=== PATIENT | female | born 1980 | race African-American/Black ===

== ENCOUNTER 2019-03-09 08:55 | Emergency (ER) | payer BC, OTHER ==
[~2019-03-09] VITALS: Ht 162.6 cm; Wt 127.9 kg
[~2019-03-09 08:55] MED LIST: GLYXAMBI 25 MG1 EACH PO; GUAIFEN-CODEINE10 ML PO; HYDROCHLOROTHIA25 M2 PO; LIPITOR10 MG PO; METFORMIN HCL500 MG PO; NEURONTIN 300300 M1 PO; PRINIVIL20 MG PO; TRULICITY1.5 MG/0.5 SUBQ
[2019-03-09] MEDS ORDERED: TESSALON PERLE100 MG PO (11:59)
[2019-03-09] MEDS ORDERED: PROMETHAZINE-P118 M1 PO (11:59)
[2019-03-09 14:25] VITALS: BP 120/69
== END 2019-03-09 12:10 | disposition home or self-care (01) ==
LOC: ER 08:55
DX: J06.9 Acute upper respiratory infection, unspecified (principal); I10 Essential (primary) hypertension; E11.9 Type 2 diabetes mellitus without complications; Z88.5 Allergy status to narcotic agent

== ENCOUNTER 2019-03-25 19:07 | Emergency (ER) | payer BC, OTHER ==
[~2019-03-25] VITALS: Ht 162.6 cm; Wt 123.8 kg
[~2019-03-25 19:07] MED LIST changes: +PROMETHAZINE-P118 M1 PO; +TESSALON PERLE100 MG PO
[2019-03-25] MEDS ORDERED: NORCO 5-325 TA1 EACH PO (20:30)
[2019-03-25 20:49] VITALS: BP 129/74
== END 2019-03-25 20:40 | disposition home or self-care (01) ==
LOC: ER 19:07
DX: G89.29 Other chronic pain (principal); M25.562 Pain in left knee; I10 Essential (primary) hypertension; E11.9 Type 2 diabetes mellitus without complications; E66.9 Obesity, unspecified; Z68.42 Body mass index [BMI] 45.0-49.9, adult; Z79.899 Other long term (current) drug therapy; Z88.5 Allergy status to narcotic agent

== ENCOUNTER 2019-05-04 18:42 | Emergency (ER) | payer BC, OTHER ==
[~2019-05-04] VITALS: Ht 162.6 cm; Wt 127.9 kg
[2019-05-04 18:42] VITALS: BP 132/93
[~2019-05-04 18:42] MED LIST changes: +NORCO 5-325 TA1 EACH PO
[2019-05-04] MEDS ORDERED: IBUPROFEN 800800 M1 PO (19:20)
== END 2019-05-04 19:28 | disposition home or self-care (01) ==
LOC: ER 18:42
DX: S90.111A Contusion of right great toe without damage to nail, initial encounter (principal); I10 Essential (primary) hypertension; E11.9 Type 2 diabetes mellitus without complications; E66.9 Obesity, unspecified; Z68.42 Body mass index [BMI] 45.0-49.9, adult; Z88.5 Allergy status to narcotic agent; W22.8XXA Striking against or struck by other objects, initial encounter; Y92.89 Other specified places as the place of occurrence of the external cause; Y93.89 Activity, other specified; Y99.8 Other external cause status

== ENCOUNTER → 2019-07-14 | Outpatient (CLI) | payer BC, OTHER ==
[~2019-07-14] VITALS: Ht 264.2 cm; Wt 124.3 kg
[~2019-07-14] MED LIST changes: +BACLOFEN 10MG T10 MG PO; +FLEXERIL PO; +IBUPROFEN 800800 M1 PO; +LIPITOR 20 MG T20 M1 PO; -LIPITOR10 MG PO; +LISINOPRIL40 MG PO; +METOPROLOL SUCC50 MG PO; +NEURONTIN600 MG PO; -PRINIVIL20 MG PO
[2019-07-14 13:34] VITALS: BP 137/99
--- NOTE | 2019-07-14 13:45 | NUR ---
Pain Clinic Assessment: 1. History of Osteoarthritis: LEFT KNEE History of Rheumatoid Arthritis: NONE 2. Height: 5 ft. 44 in. 264.2 cm. Weight: 274.0 lb. oz. 124.286 kg. Patient's BMI: 17.8 3. Vital Signs: BP: 137/99 Pulse: 97 Resp: 16 Temp: 02 Sat: 100 ECG Mon: 4. Pain Intensity: 7-8 5. Fall Risk: Dizziness: Y Needs help standing or walking: N Fallen in the last 3 months: N Fall risk comments: 6. Patient on Blood Thinner: None 7. History of Hypertension: Y 8. Opioid Therapy greater than 6 weeks: N Opiate Contract Signed: 9. Risk Assessment Tool Provided: 10. Functional Assessment Tool: 11. Recreational Drug Use: Never Drug Type: Tobacco Use: Never Smoker Tobacco Type: Amount or Packs/day: How Many Years: Alcohol Use: No Frequency: Quant:
--- NOTE | 2019-07-15 07:59 | HPC ---
[facility] [address] [place] [address] PAIN MANAGEMENT CONSULTATION Name: LEONARD CHASE Room #: REG SHARI Fraser.#: [id number] Admission: 07/14/19 Attend Phys: Kevon Red DO Discharge: Date of : 76 Report #: [id number] THIS REPORT FOR: //name// CC: Kevon Salinas Cande Brad MATHEW DATE OF SERVICE: 07/14/2019 CHIEF COMPLAINT: Neck pain, right upper extremity pain with paresthesias. HISTORY OF PRESENT ILLNESS: As you know, the patient is a very pleasant 38-year-old female with 1-month history of neck pain, right upper extremity pain with paresthesias. She indicates no injury or trauma that may have led to symptom occurrence. She states her pain became intense enough that she was seen in the Emergency Department and advised that the CT examination, which was performed to evaluate the patient's cervical region was suboptimal in nature. It was degraded significantly by body habitus. There was noted a possible increase in soft tissue density at the C6-C7 level, which might be a paramedian disk herniation, but it also might be beam hardening artifact, interestingly wrong side for the patient's pain. Rest of the imaging was degraded by body habitus and unusable. The patient sought evaluation after this ER visit with her PCP who started her on steroid medications. She has been on 2 rounds of steroids with improvement only with the Medrol Dosepak and those were only for the first 3 days. She has been provided a referral to our clinic to discuss options for treatment. The patient indicates today pain is continuous, describes the pain as aching and throbbing as well as numbness and tingling. Places current pain score 6/10, daily average of 5-6/10, worst pain has been 9/10. The patient states that sitting for any length of time or standing for any length of time tends to exacerbate symptoms; lying down tends to improve pain. She indicates pain begins on the right cervical region, radiates down the right arm in what appears to be a C6 dermatomal distribution. Also, is experiencing some paraspinal musculature tenderness that leads to a tension-type headache radiating over the right occipital area towards the supraorbital ridge. The patient denies injury or trauma that may have led to symptom occurrence. PAST MEDICAL HISTORY: 1. Diabetes mellitus type 2. 2. Severe morbid obesity. 3. Hypertension. 4. Dyslipidemia. 5. History of anxiety disorder. 6. History of osteoarthritis. [address] [address] PAIN MANAGEMENT CONSULTATION Name: LEONARD CHASE Room #: REG CLI Saurabh#: [id number] Admission: 07/14/19 Attend Phys: Kevon Red DO Discharge: Date of : 76 Report #: [id number] PAST SURGICAL HISTORY: 1. Tubal ligation. 2. Cholecystectomy. SOCIAL HISTORY: The patient denies tobacco, alcohol or IV illicit drug use. She is a phone triage nurse. She is working, not receiving workmen's compensation or is trying to obtain disability benefits. She is not in litigation in regards to pain. She is unaccompanied at today's visit. REVIEW OF SYSTEMS: Positive for wearing corrective eyewear, numbness and tingling sensations involving the right neck and right upper extremity, [id number] diabetes. All other review of systems negative per 12-point review of systems other than those listed in history of present illness. Pain impact score 33 of 70 indicating moderate interference of daily activities secondary to pain. ALLERGIES: CODEINE. CURRENT MEDICATIONS: Cyclobenzaprine 10 mg p.o. at bedtime, metoprolol 50 mg once a day, gabapentin 600 mg in the morning and 600-1200 mg at night, hydrocodone 5/325 one tab p.o. q.8 hours p.r.n. for pain, Glyxambi 25/5 mg once a day, atorvastatin 20 mg per day, Trulicity 1.5 mg/0.5 mg injected subcutaneous weekly, hydrochlorothiazide 25 mg per day, lisinopril 40 mg per day and metformin 500 mg b.i.d. IMAGING: CT cervical spine obtained 06/12/2019 shows straightening of the cervical lordosis. No acute fracture. No aggressive lytic or osteoblastic lesions. There is a mild disk space height loss at C7-T1. The spinal canal imaging is degraded by body habitus and thus un-useful. There is increased soft tissue density at the C6-C7 level, but it is undetermined whether or not this is a left paramedian disk herniation or if there is just beam hardening an artifact at the level. Thyroid appears normal. There is no other pathology noted on this degraded CT. PHYSICAL EXAMINATION: VITAL SIGNS: Blood pressure 137/99, pulse 97, respiratory rate 16 and unlabored. The patient is 100% on room air. Height 5 feet 4 inches tall, weight 274 pounds, BMI calculated at 47.0. GENERAL: Well-developed, well-nourished, well-hydrated, class 3, morbidly obese 38-year-old female appearing stated age. She is in moderate distress secondary to pain, placing current pain score at approximately 7-8/10. HEENT: Normocephalic, atraumatic. Pupils equal, round, reactive to light. Extraocular muscles are intact. Sclerae nonicteric without injection. NEUROLOGIC: Cranial nerves 2-12 grossly intact. Speech is fluent. The patient [facility] [address] [place] [address] PAIN MANAGEMENT CONSULTATION Name: LEONARD CHASE [facility] [id number] Admission: 07/14/19 Attend Phys: Kevon Red DO Discharge: Date of : 76 Report #: [id number] deemed a good historian. LUNGS: Clear, no wheeze, rhonchi or rales. CARDIOVASCULAR: Regular. No appreciable gallop, no rub. ABDOMEN: Soft, obese, normoactive bowel sounds. EXTREMITIES: Show no clubbing, no cyanosis, no edema. MUSCULOSKELETAL: Palpatory tenderness noted over the paraspinal musculature of the right cervical region, negative left. Deep palpation over the upper cervical region causes intensification of pain with radiation of symptoms over the top of the head in a typical occipital distribution. Cervical provocation testing is met with increasing pain on the right, negative left. Spurling's test appears to be positive right, certainly negative left. There are some tactile changes to light touching the distal C6 dermatome on the right. Normal findings, left. Loss of cervical lordotic curvature. ASSESSMENT: 1. Cervical radiculopathy. 2. Right neck pain. 3. Tension headache. 4. Cervicogenic headache. PLAN: 1. Based on today's physical exam and history the patient provides, the description the patient uses in regards to pain as well as the distribution of symptoms, it would appear the patient is suffering from cervical radiculopathy. We reviewed the degraded CT examination, which only shows findings on the left side at the C6-C7 level, which does not correlate with the patient's symptoms. It is questionable whether or not there is actually disk herniation at the C6-C7 level or is this a result of beam hardening artifact. The imaging is of little or no benefit and does not correlate to the patient's right-sided findings of possible radiculopathy. The patient will need to undergo MRI of the cervical spine for further evaluation given the degraded nature of the CT exam and the fact that there are no findings on this examination which will correlate with the patient's symptoms. Further workup needs to be addressed. We will defer to the primary team to complete this workup. 2. Would recommend discontinuation of gabapentin. The patient is noting side effects and does not appear to be taking this medication consistently. We will start the patient on Lyrica. We have given her samples of 75-mg tablets, she will take 1 in the morning, 1 at night for 3 nights, then increase to 2 in the morning, 2 at night or total of 150 mg BID. She will watch for any side effects such as sleepiness, disorientation, confusion, mental slowing with use of the medication. She was given samples of the 75-mg tablets to fill this titration. We are hopeful the patient will see benefit with this medication. 3. We have provided the patient with a different muscle relaxant. She states that the cyclobenzaprine causes too much somnolence, decreased mental acuity, disorientation for her to go about her daily activity. We have instead given a baclofen dose 10 mg 1 tab p.o. t.i.d. p.r.n. She will watch for side effects [address] [address] PAIN MANAGEMENT CONSULTATION Name: RENALEONARD Foster Room #: JERRY Wiley#: [id number] Admission: 07/14/19 Attend Phys: Kevon Red DO Discharge: Date of : 76 Report #: [id number] with the medication, but we are hopeful she will see good improvement. 4. We will begin the process of approval for a cervical epidural injection. We will need the MRI to review findings to confirm that there is pathology on the right that might be amenable to a cervical epidural injection. We will await the MRI results. Once the study has been completed, we will have the patient return to review the findings and possibly undergo a cervical injection. 5. We wish to thank Cande Salinas NP for the opportunity to see the patient in consultation. We will see her back once her MRI of the cervical spine has been completed, so that we can determine the pathology in the cervical region that may be the source of the patient's right upper extremity pain. If the MRI is complete and no pathology is noted, we would recommend then further evaluation with possible EMG of the right upper extremity. Again, we wish to thank you for the opportunity to see the patient in consultation. <ELECTRONICALLY SIGNED> By: Kevon Red DO 07/15/19 [id number] Kevon Red DO /nt
== END ==
LOC: PAIN 06:55
DX: M54.12 Radiculopathy, cervical region (principal); R51 Headache; E11.9 Type 2 diabetes mellitus without complications

== ENCOUNTER → 2019-07-29 | Outpatient (CLI) | payer BC, OTHER ==
[~2019-07-29] VITALS: Ht 162.6 cm; Wt 134.1 kg
--- NOTE | ~2019-07-29 | HPC ---
[facility] [address] [place] [address] PAIN MANAGEMENT CONSULTATION Name: LEONARD CHASE Room #: REG Carlene Fraser.#: [id number] Admission: 07/29/19 ������������������ Attend Phys: Kevon Red DO Discharge: ������������������ Date of : 76 Report #: [id number] THIS REPORT FOR: //name// CC: Kevon Salinas Cande Salinas TREE THINNER DATE OF SERVICE: 07/29/2019 CHIEF COMPLAINT: Neck pain, right upper extremity pain and paresthesias. HISTORY OF PRESENT ILLNESS: As you know, the patient is a 38-year-old female who reports an acute onset of neck pain, right upper extremity pain that presented with no inciting injury or trauma. She states her pain became so intense that she sought evaluation through the Emergency Department, underwent CT examination, which showed changes at the C6-C7 level, thought to be possibly a disk herniation, but there was a significant amount of beam hardening artifact. She was referred to our clinic where we saw the patient on 07/14/2019 given presumptive diagnosis of cervical radiculopathy and right neck pain. She was advised of different treatment options, she chose to undergo cervical epidural injection. She returns today 07/29/2019 having received precertification to undergo cervical epidural injection to address pain for which she gives a pain level of 3/10. ALLERGIES: CODEINE. CURRENT MEDICATIONS: Cyclobenzaprine, metoprolol, gabapentin, hydrocodone, Glyxambi, atorvastatin, Trulicity, hydrochlorothiazide, lisinopril, metformin. SOCIAL HISTORY: The patient denies tobacco, alcohol, IV or illicit drug use. 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 IMAGING: No new imaging available. PHYSICAL EXAMINATION: VITAL SIGNS: Blood pressure 149/85, pulse 110, respiratory rate 18 and unlabored. The patient is 99% on room air. Height 5 feet 4 inches tall, weight 295.6 pounds, BMI calculated 50.7. GENERAL: Well-developed, well-nourished, well-hydrated, class 3, morbidly obese 38-year-old female appearing stated age, pain is rated around 6/10. HEENT: Normocephalic, atraumatic. Pupils equal, round, reactive to light. EXTREMITIES: Show no clubbing, no cyanosis, and no edema. MUSCULOSKELETAL: Palpatory tenderness is again noted over the paraspinal musculature of the right cervical spine, negative left. Cervical provocation testing is met with increasing pain on the right, negative left. [address] [address] PAIN MANAGEMENT CONSULTATION Name: LEONARD CHASE Room #: REG SHARI Wiley#: [id number] Admission: 07/29/19 ������������������ Attend Phys: Kevon Red DO Discharge: ������������������ Date of : 76 Report #: [id number] test positive on the right. ASSESSMENT: 1. Cervical radiculopathy. 2. Right neck pain. 3. Cervicogenic headache. PLAN: 1. The patient returns today in followup visit having received precertification to undergo cervical epidural injection under fluoroscopic guidance to address cervical radicular symptoms. The patient has been advised the risks and benefits of the procedure. These risks include, but are not necessarily limited to bleeding, bruising, infection, worsening pain, no relief of pain, also risk of temporary or permanent muscle weakness, temporary or permanent nerve damage, possible paralysis, post-dural puncture headache and . The patient states understood and wished to proceed. 2. No medication changes made at today's visit. The patient will continue current medical therapy as previously prescribed. 3. The patient was given an excuse from work for today 07/29/2019 to recover from the procedure provided. DESCRIPTION OF PROCEDURE: C7-T1 cervical epidural steroid injection under fluoroscopic guidance. This is the first procedure of the first series that the patient is undergoing. After obtaining written consent, the patient was taken back to the fluoroscopy suite and placed in a prone position with separate pillows under chest and forehead to decrease cervical lordosis. The skin overlying the cervical area was prepped and draped in an aseptic fashion. The C7-T1 vertebral interspace was identified by AP fluoroscopy. The skin and subcutaneous tissue overlying the target site of injection was anesthetized using 3 mL of 1% lidocaine. A 20-guage, 4.5-inch Tuohy needle was advanced under fluoroscopic guidance toward the epidural space using a midline approach. The epidural space was identified using a loss of resistance to air technique. After negative aspiration for heme or cerebrospinal fluid, a total of 1 mL of Omnipaque was injected. A cervical epidurogram was confirmed using AP and oblique fluoroscopy. After negative aspiration for heme or cerebrospinal fluid, 5 mL of a solution containing 2 mL, 40 mg per mL, 80 mg total triamcinolone along with 3mL of lidocaine 1% was injected in increments. Contrast spread was noted from posterior epidural space. The needle was then retracted approximately [facility] and the needle track was flushed with 1 mL of 1% lidocaine. There were no apparent new sensory deficits in the upper extremities present following the procedure. A sterile bandage was placed over the injection site. [address] [address] PAIN MANAGEMENT CONSULTATION Name: LEONARD CHASE Room #: REG SHARI FraserDenny#: [id number] Admission: 07/29/19 ������������������ Attend Phys: Kevon Red DO Discharge: ������������������ Date of : 76 Report #: [id number] The heart rate, pulse oximetry and blood pressure were continuously monitored after the procedure. There were no apparent complications. The patient tolerated the procedure well and was carefully escorted in the recovery room in stable condition. After meeting discharge criteria, the patient was discharged home. ��������������������������������������������� ���������������������������������������� By: ��������������������������������������������� [id number] Kevon Red DO /nt
[2019-07-29 09:54] VITALS: BP 149/85
--- NOTE | 2019-07-29 10:01 | NUR ---
Pain Clinic Assessment: 1. History of Osteoarthritis: LEFT KNEE History of Rheumatoid Arthritis: NONE 2. Height: 5 ft. 4 in. 162.6 cm. Weight: 295.6 lb. oz. 134.084 kg. Patient's BMI: 50.7 3. Vital Signs: BP: 149/85 Pulse: 110 Resp: 18 Temp: 02 Sat: 99 ECG Mon: 4. Pain Intensity: 3 5. Fall Risk: Dizziness: N Needs help standing or walking: N Fallen in the last 3 months: N Fall risk comments: 6. Patient on Blood Thinner: None 7. History of Hypertension: Y 8. Opioid Therapy greater than 6 weeks: N Opiate Contract Signed: 9. Risk Assessment Tool Provided: 10. Functional Assessment Tool: 11. Recreational Drug Use: Never Drug Type: Tobacco Use: Never Smoker Tobacco Type: Amount or Packs/day: How Many Years: Alcohol Use: No Frequency: Quant:
== END | disposition home or self-care (01) ==
LOC: PAIN
DX: M54.12 Radiculopathy, cervical region (principal); M54.2 Cervicalgia; G44.89 Other headache syndrome; Z88.6 Allergy status to analgesic agent; Z79.891 Long term (current) use of opiate analgesic; Z98.890 Other specified postprocedural states; Z79.899 Other long term (current) drug therapy

== ENCOUNTER → 2019-08-19 | Outpatient (CLI) | payer BC, OTHER ==
[~2019-08-19] VITALS: Ht 162.6 cm; Wt 132.6 kg
[~2019-08-19] MED LIST changes: +LYRICA 75 MG CA75 MG PO
--- NOTE | ~2019-08-19 | HPC ---
[facility] [address] [place] [address] PAIN MANAGEMENT CONSULTATION Name: LEONARD CHASE Room #: REG RUIZCarlene Fraser.#: [id number] Admission: 08/19/19 Attend Phys: Kevon Red DO Discharge: Date of : 76 Report #: [id number] THIS REPORT FOR: //name// CC: Kevon MATHEW DATE OF SERVICE: 08/19/2019 CHIEF COMPLAINT: Neck pain, right upper extremity pain with paresthesias. HISTORY OF PRESENT ILLNESS: As you know, patient is a 38-year-old female who returns today in followup visit now reporting pain score 0/10. We have started the patient on Lyrica where she is taking 75 mg twice a day with improved pain. It is noted the patient discontinued baclofen and was started on cyclobenzaprine by her PCP. The patient has trialled the medication and feels it might be beneficial and she is going to continue that therapy. She returns today in followup visit requesting a refill of the Lyrica. She is denying side effects of sleepiness, disorientation, confusion, mental slowing with the use of the therapy. She is very pleased with response to medication, returning for refills. ALLERGIES: CODEINE. CURRENT MEDICATIONS: Pregabalin 75 mg twice a day, cyclobenzaprine 10 mg t.i.d. p.r.n., metoprolol ER 50 mg once a day, Glyxambi 25/5 mg once a day, atorvastatin 20 mg per day, Trulicity 1.5 mg subcutaneous weekly, hydrochlorothiazide 25 mg daily, lisinopril 40 mg per day, metformin 500 mg 2 tabs twice a day. SOCIAL HISTORY: The patient denies tobacco, alcohol, IV or illicit drug use. 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 She is working, not receiving workmen's compensation, unaccompanied today. IMAGING: No new imaging available. PHYSICAL EXAMINATION: VITAL SIGNS: Blood pressure 134/96, pulse 96, respiratory rate 16 and unlabored. The patient is 100% on room air. Height 5 feet 4 inches tall, weight 292.4 pounds, BMI calculated 50.2. GENERAL: Well-developed, well-nourished, well-hydrated, class 3, morbidly obese 38-year-old female appearing stated age, placing current pain score 0/10. HEENT: Normocephalic, atraumatic. Pupils equal, round, reactive to light. EXTREMITIES: Show no clubbing, no cyanosis, no edema. MUSCULOSKELETAL: Upper extremity strength appears symmetrical 5/5. Muscle bulk and tone equal and symmetrical in comparing left upper extremity to right. [address] [address] PAIN MANAGEMENT CONSULTATION Name: LEONARD CHASE Room #: REG SHARI Wiley#: [id number] Admission: 08/19/19 Attend Phys: Kevon Red DO Discharge: Date of : 76 Report #: [id number] Spurling's test remains positive on the right. Cervical provocation testing is met with slight increase in pain with rightward mobility mainly with lateral flexion and rotation. Extension and flexion of the cervical spine does not change overall symptoms. ASSESSMENT: 1. Cervical radiculopathy. 2. Cervicogenic headache. 3. Intractable pain. PLAN: 1. The patient has returned today in followup visit, very pleased with response to medication management. She feels the Lyrica 75 mg b.i.d. dose is working beneficially for pain control. She is denying side effects of sleepiness, disorientation, confusion, mental slowing with the use of the medication. We recommend she continue therapy. We are pleased to see she has done well with the medication and have provided her a prescription today of #60 tablets with 2 refills, 3 months' worth of medication. The patient was advised she can return to our clinic to refill the medication on a quarterly basis or she can follow up with her PCP for continuation of medication management if this is not a controlled substance. The patient was given a prescription today for #60 tablets, 2 refills, 3 months' worth of therapy. 2. The patient was given an excuse from work for this morning indicating that she will be returning to work by 10:00 of 08/19/2019. She was given the prescription for the report of visit today. 3. The patient has requested that a note to be provided to her employer for special seating a consideration. We recommend the patient follow up with her PCP in regards to this issue. We will defer to them for the request for this change in chairs. 4. If the patient has recurrence of pain, would recommend a slow titration of Lyrica to 100 mg b.i.d. starting with increase in the evening hours from 75 to 100 mg. If this is ineffective at controlling symptoms, then increase to 100 mg b.i.d. Typically, we do not need to increase patient's medications further. Once they have stabilized on a dose though a minor titration may be necessary depending on long-term efficacy with this therapy. This can be done through the primary care physician or through our offices. 5. We have provided the patient's medication today for 3 months. She will be following up with her either PCP or with our services in 3 months. She can return earlier if she requests a need for cervical epidural injection. By: [id number] Kevon Red DO /terri
[2019-08-19 08:22] VITALS: BP 134/96
--- NOTE | 2019-08-19 08:30 | NUR ---
Pain Clinic Assessment: 1. History of Osteoarthritis: LEFT KNEE History of Rheumatoid Arthritis: NONE 2. Height: 5 ft. 4 in. 162.6 cm. Weight: 292.4 lb. oz. 132.632 kg. Patient's BMI: 50.2 3. Vital Signs: BP: 134/96 Pulse: 96 Resp: 16 Temp: 02 Sat: 100 ECG Mon: 4. Pain Intensity: 01- 5. Fall Risk: Dizziness: N Needs help standing or walking: N Fallen in the last 3 months: N Fall risk comments: 6. Patient on Blood Thinner: None 7. History of Hypertension: Y 8. Opioid Therapy greater than 6 weeks: N Opiate Contract Signed: 9. Risk Assessment Tool Provided: 10. Functional Assessment Tool: 11. Recreational Drug Use: Never Drug Type: Tobacco Use: Never Smoker Tobacco Type: Amount or Packs/day: How Many Years: Alcohol Use: No Frequency: Quant:
== END ==
LOC: PAIN 08-12 09:26
DX: M54.12 Radiculopathy, cervical region (principal); G89.4 Chronic pain syndrome; R51 Headache; Z79.899 Other long term (current) drug therapy; Z88.8 Allergy status to other drugs, medicaments and biological substances

== ENCOUNTER 2019-10-06 10:58 | Emergency (ER) | payer BC, OTHER ==
[~2019-10-06] VITALS: Ht 162.6 cm; Wt 132.4 kg
[2019-10-06] MEDS ORDERED: GABAPENTIN600 M1 PO (11:59)
[2019-10-06] MEDS ORDERED: XANAX 0.25 MG0.25 MG PO (12:01)
[2019-10-06 12:04] LABS: URINE BILIRUBIN NEGATIVE (Negative); URINE BLOOD NEGATIVE (Negative); URINE CLARITY CLEAR; URINE COLOR YELLOW; URINE GLUCOSE-RANDOM* 3+ (Negative); URINE KETONES NEGATIVE (Negative); URINE LEUKOCYTES-REFLEX NEGATIVE (Negative); URINE NITRITE-REFLEX NEGATIVE (Negative); URINE PROTEIN (DIPSTICK) NEGATIVE (Negative); URINE UROBILINOGEN 0.2 E.U./dl (0.2-1.0)
[2019-10-06] MEDS ORDERED: PROAIR HFA8.5 GM INH (12:44)
[2019-10-06] MEDS ORDERED: PREDNISONE 20 M20 MG PO (12:44)
[2019-10-06 13:06] VITALS: BP 135/76
== END 2019-10-06 13:05 | disposition home or self-care (01) ==
LOC: ER 10:58
PROVIDERS: Emergency Medicine
DX: J40 Bronchitis, not specified as acute or chronic (principal); E66.9 Obesity, unspecified; Z68.43 Body mass index [BMI] 50.0-59.9, adult; Z98.51 Tubal ligation status; Z90.49 Acquired absence of other specified parts of digestive tract; Z88.6 Allergy status to analgesic agent

== ENCOUNTER 2019-10-08 20:02 | Emergency (ER) | payer BC, OTHER ==
[~2019-10-08] VITALS: Ht 162.6 cm; Wt 130.2 kg
[~2019-10-08 20:02] MED LIST changes: +GABAPENTIN600 M1 PO; +PREDNISONE 20 M20 MG PO; +PROAIR HFA8.5 GM INH; +XANAX 0.25 MG0.25 MG PO
[2019-10-08 20:44] LABS: URINE BILIRUBIN NEGATIVE (Negative); URINE BLOOD NEGATIVE (Negative); URINE CLARITY CLEAR; URINE COLOR YELLOW; URINE GLUCOSE-RANDOM* 3+ (Negative); URINE KETONES NEGATIVE (Negative); URINE LEUKOCYTES-REFLEX NEGATIVE (Negative); URINE NITRITE-REFLEX NEGATIVE (Negative); URINE PROTEIN (DIPSTICK) NEGATIVE (Negative); URINE SPECIFIC GRAVITY 1.015 (1.005-1.035); URINE UROBILINOGEN 0.2 E.U./dl (0.2-1.0)
[2019-10-08 20:52] LABS: ABSOLUTE NEUTROPHILS 6.1 thou/uL (1.4-8.2); BASOPHILS 1.3 % (0.0-2.0); EOSINOPHILS 0.1 % (0.0-3.0); HEMOGLOBIN 11.8 gm/dL (12.0-15.0); LYMPHOCYTES 30.8 % (24.0-44.0); MCH 28.7 pg (26.0-34.0); MCHC 32.9 g/dL (28.0-37.0); MCV 87.2 fL (80.0-100.0); MONOCYTES 6.9 % (1.0-8.0); PLATELET COUNT 419 thou/uL (150-400); POLYS 60.9 % (36.0-66.0); RBC 4.12 mil/uL (4.20-5.00); RDW 15.4 % (10.5-14.5)
[2019-10-08 21:01] LABS: CALCIUM 9.6 mg/dL (8.5-10.1); CREATININE 1.2 mg/dL (0.6-1.0); POTASSIUM 3.7 mmol/L (3.5-5.1)
[2019-10-08 21:07] LABS: ALBUMIN 3.5 g/dL (3.4-5.0); TOTAL BILIRUBIN 0.2 mg/dL (<0.1-1.0); TOTAL PROTEIN 7.9 g/dL (6.4-8.2)
[2019-10-08] MEDS ORDERED: PROMETH-CODEIN 65 ML PO (22:10)
[2019-10-08] MEDS ORDERED: ALBUTEROL2.5 MG/31 INH ×3 (22:10→22:14)
[2019-10-08] MEDS ORDERED: ZPAK PO (22:13)
[2019-10-08 22:25] VITALS: BP 168/99
== END 2019-10-08 22:26 | disposition home or self-care (01) ==
LOC: ER 20:02
PROVIDERS: Physician Assistant
DX: J45.909 Unspecified asthma, uncomplicated (principal); R05 Cough; Z90.49 Acquired absence of other specified parts of digestive tract; Z98.51 Tubal ligation status; Z88.6 Allergy status to analgesic agent

== ENCOUNTER 2019-11-21 19:36 | Emergency (ER) | payer BC, OTHER ==
[~2019-11-21] VITALS: Ht 162.6 cm; Wt 127.0 kg
[~2019-11-21 19:36] MED LIST changes: +ALBUTEROL2.5 MG/31 INH; +PROMETH-CODEIN 65 ML PO; +ZPAK PO
[2019-11-21] MEDS ORDERED: NEOMYC-POLYM-DEX5 ML OPHTHALMIC (21:37)
[2019-11-21] MEDS ORDERED: CIPROFLOXIN HC2.5 M1 OPHTHALMIC (21:39)
[2019-11-21 21:57] VITALS: BP 123/81
== END 2019-11-21 21:57 | disposition home or self-care (01) ==
LOC: ER 19:36
DX: H57.13 Ocular pain, bilateral (principal); Z90.49 Acquired absence of other specified parts of digestive tract; Z88.5 Allergy status to narcotic agent

== ENCOUNTER 2020-10-25 22:41 | Emergency (ER) | payer OTHER ==
[~2020-10-25] VITALS: Ht 162.6 cm; Wt 124.3 kg
[~2020-10-25 22:41] MED LIST changes: +CIPROFLOXIN HC2.5 M1 OPHTHALMIC; +NEOMYC-POLYM-DEX5 ML OPHTHALMIC
[2020-10-25] MEDS ORDERED: METFORMIN HCL1000 M1 PO (23:06)
[2020-10-25] MEDS ORDERED: AMBIEN 10 MG TA10 MG PO (23:07)
[2020-10-26 00:54] VITALS: BP 128/69
== END 2020-10-26 00:55 | disposition home or self-care (01) ==
LOC: ER 22:41
DX: E11.65 Type 2 diabetes mellitus with hyperglycemia (principal); R51.9 Headache, unspecified; I10 Essential (primary) hypertension; Z90.49 Acquired absence of other specified parts of digestive tract; Z98.51 Tubal ligation status; Z79.899 Other long term (current) drug therapy; Z88.5 Allergy status to narcotic agent

== ENCOUNTER 2021-01-17 09:32 | Emergency (ER) | payer OTHER ==
[~2021-01-17] VITALS: Ht 162.6 cm; Wt 123.4 kg
[~2021-01-17 09:32] MED LIST changes: +AMBIEN 10 MG TA10 MG PO; +METFORMIN HCL1000 M1 PO
[2021-01-17 10:30] VITALS: BP 142/79
== END 2021-01-17 12:34 | disposition home or self-care (01) ==
LOC: ER 09:32
DX: J02.9 Acute pharyngitis, unspecified (principal); I10 Essential (primary) hypertension; E11.9 Type 2 diabetes mellitus without complications; Z79.899 Other long term (current) drug therapy; Z88.8 Allergy status to other drugs, medicaments and biological substances; Z20.822 Contact with and (suspected) exposure to COVID-19

== ENCOUNTER 2021-02-23 16:28 | Emergency (ER) | payer OTHER ==
[~2021-02-23] VITALS: Ht 162.6 cm; Wt 126.1 kg
[2021-02-23 16:58] LABS: URINE BILIRUBIN NEGATIVE (Negative); URINE BLOOD TRACE (Negative); URINE CLARITY CLEAR; URINE COLOR YELLOW; URINE GLUCOSE-RANDOM* 3+ (Negative); URINE KETONES NEGATIVE (Negative); URINE LEUKOCYTES-REFLEX NEGATIVE (Negative); URINE NITRITE-REFLEX NEGATIVE (Negative); URINE PROTEIN (DIPSTICK) 1+ (Negative); URINE SPECIFIC GRAVITY 1.015 (1.005-1.035); URINE UROBILINOGEN 0.2 E.U./dl (0.2-1.0)
[2021-02-23 17:07] LABS: SQUAMOUS >10 Many /LPF (0-3)
[2021-02-23 17:08] LABS: URINE WBC-REFLEX >25 Many /HPF (0-5); WBC CLUMPS Moderate (None Seen)
[2021-02-23 17:09] LABS: BACTERIA-REFLEX >30 Many /HPF (None Seen); CASTS None Seen /LPF (None Seen); CRYSTALS None Seen /LPF (None Seen); URINE RBC 0-2 Rare /HPF (0-2)
[2021-02-23 17:10] LABS: YEAST-REFLEX Present (None Seen)
[2021-02-23 17:54] LABS: ABSOLUTE NEUTROPHILS 5.6 thou/uL (1.4-8.2); BASOPHILS 0.6 % (0.0-2.0); EOSINOPHILS 1.2 % (0.0-3.0); HEMATOCRIT 32.5 % (37.0-47.0); HEMOGLOBIN 10.5 gm/dL (12.0-15.0); LYMPHOCYTES 29.4 % (24.0-44.0); MCH 25.7 pg (26.0-34.0); MCHC 32.3 g/dL (28.0-37.0); MCV 79.6 fL (80.0-100.0); MONOCYTES 6.8 % (1.0-8.0); PLATELET COUNT 413 thou/uL (150-400); RBC 4.08 mil/uL (4.20-5.00); RDW 16.1 % (10.5-14.5)
[2021-02-23 18:00] LABS: CREATININE 0.8 mg/dL (0.6-1.0); POTASSIUM 4.1 mmol/L (3.5-5.1)
[2021-02-23 18:05] LABS: ALBUMIN 3.2 g/dL (3.4-5.0); TOTAL BILIRUBIN 0.3 mg/dL (0.2-1.0); TOTAL PROTEIN 7.6 g/dL (6.4-8.2)
[2021-02-23 20:05] VITALS: BP 145/87
[2021-02-23] MEDS ORDERED: NORCO5 PO (20:25)
[2021-02-23] MEDS ORDERED: FLAGYL500 M1 PO (20:25)
[2021-02-23] MEDS ORDERED: DIFLUCAN150 MG PO (20:25)
[2021-02-23] MEDS ORDERED: KEFLEX500 M1 PO (20:25)
== END 2021-02-23 20:40 | disposition home or self-care (01) ==
LOC: ER 16:28
PROVIDERS: Emergency Medicine; Physician Assistant
DX: N76.0 Acute vaginitis (principal); B96.89 Other specified bacterial agents as the cause of diseases classified elsewhere; B37.3 Candidiasis of vulva and vagina; D25.9 Leiomyoma of uterus, unspecified; N39.0 Urinary tract infection, site not specified; E11.9 Type 2 diabetes mellitus without complications; I10 Essential (primary) hypertension; Z98.51 Tubal ligation status; Z90.49 Acquired absence of other specified parts of digestive tract; Z79.899 Other long term (current) drug therapy; Z88.8 Allergy status to other drugs, medicaments and biological substances

== ENCOUNTER 2021-09-10 09:48 | Emergency (ER) | payer OTHER ==
[~2021-09-10] VITALS: Ht 162.6 cm; Wt 123.4 kg
[~2021-09-10 09:48] MED LIST changes: +DIFLUCAN150 MG PO; +FLAGYL500 M1 PO; +KEFLEX500 M1 PO; +NORCO5 PO
[2021-09-10 10:24] LABS: URINE BILIRUBIN NEGATIVE (Negative); URINE BLOOD NEGATIVE (Negative); URINE CLARITY CLEAR; URINE COLOR YELLOW; URINE GLUCOSE-RANDOM* 3+ (Negative); URINE KETONES 2+ (Negative); URINE LEUKOCYTES-REFLEX NEGATIVE (Negative); URINE NITRITE-REFLEX NEGATIVE (Negative); URINE PROTEIN (DIPSTICK) NEGATIVE (Negative); URINE SPECIFIC GRAVITY 1.015 (1.005-1.035); URINE UROBILINOGEN 0.2 E.U./dl (0.2-1.0)
[2021-09-10 10:41] LABS: HEMATOCRIT 31.8 % (37.0-47.0); HEMOGLOBIN 10.2 gm/dL (12.0-15.0); MCH 25.1 pg (26.0-34.0); MCHC 32.2 g/dL (28.0-37.0); PLATELET COUNT 356 thou/uL (150-400); RBC 4.07 mil/uL (4.20-5.00); RDW 15.1 % (10.5-14.5); WBC 5.1 thou/uL (4.0-11.0)
[2021-09-10 10:45] LABS: CALCIUM 8.2 mg/dL (8.5-10.1); CREATININE 0.6 mg/dL (0.6-1.0); POTASSIUM 3.8 mmol/L (3.5-5.1)
[2021-09-10 10:51] LABS: TOTAL BILIRUBIN 0.3 mg/dL (0.2-1.0); TOTAL PROTEIN 6.8 g/dL (6.4-8.2)
[2021-09-10 11:20] LABS: ABSOLUTE NEUTROPHILS 2.6 thou/uL (1.4-8.2)
[2021-09-10 11:22] LABS: ANISOCYTOSIS SLIGHT; MACROCYTES FEW; POLYCHROMASIA OCCASIONAL
[2021-09-10 11:23] LABS: MICROCYTES 1+
[2021-09-10 11:25] LABS: TOXIC GRANULATION SLIGHT
[2021-09-10] MEDS ORDERED: NORCO7.5 PO (13:02)
[2021-09-10 13:14] VITALS: BP 164/94
== END 2021-09-10 13:16 | disposition home or self-care (01) ==
LOC: ER 09:48
PROVIDERS: Emergency Medicine
DX: D25.9 Leiomyoma of uterus, unspecified (principal); R10.2 Pelvic and perineal pain; E11.65 Type 2 diabetes mellitus with hyperglycemia; I10 Essential (primary) hypertension; G47.00 Insomnia, unspecified; Z98.51 Tubal ligation status; Z90.49 Acquired absence of other specified parts of digestive tract; Z79.899 Other long term (current) drug therapy; Z88.6 Allergy status to analgesic agent

== ENCOUNTER 2021-12-02 02:30 | Emergency (ER) | payer BC ==
[~2021-12-02] VITALS: Ht 167.6 cm; Wt 90.7 kg
[~2021-12-02 02:30] MED LIST changes: +NORCO7.5 PO
[2021-12-02] MEDS ORDERED: HYDROCODONE-CH115 ML PO (03:37)
[2021-12-02 03:56] VITALS: BP 151/119
[2021-12-02] MEDS ORDERED: GUAIFEN-CODEINE10 ML PO (10:30)
== END 2021-12-02 03:59 | disposition home or self-care (01) ==
LOC: ER 02:30
DX: J06.9 Acute upper respiratory infection, unspecified (principal); E11.9 Type 2 diabetes mellitus without complications; I10 Essential (primary) hypertension; Z98.51 Tubal ligation status; Z90.49 Acquired absence of other specified parts of digestive tract; Z79.51 Long term (current) use of inhaled steroids; Z79.84 Long term (current) use of oral hypoglycemic drugs; Z79.899 Other long term (current) drug therapy; Z88.5 Allergy status to narcotic agent; Z88.8 Allergy status to other drugs, medicaments and biological substances